=== PATIENT | female | born 1940 | race Caucasian/White ===

== ENCOUNTER 2022-03-22 14:08 | Observation (INO) ==
[2022-03-22] MEDS ORDERED: Iodixanol (CONTRAST) 320 MG/ML 100 ML SDV IV ONE (14:55)
[2022-03-22 16:07] LABS: ABS Lymphocytes 1.1 10^3/ul (1.0-4.8); ABS Monocytes 0.4 10^3/ul (0-0.8); ABS Neutrophils 9.4 10^3/ul (1.5-7.7); Hematocrit 38 % (35-47); Hemoglobin 12.6 g/dL (12.0-16.0); Lymphocyte % 9.9 %; Mean Corpuscular HGB Conc 33 g/dL (31-36); Mean Corpuscular Hemoglobin 28 pg (27-31); Mean Corpuscular Volume 86 fL (80-97); Mean Platelet Volume 7.7 fL (7.4-10.4); Platelet Count 250 10^3/uL (150-450); Red Blood Count 4.48 10^6 /uL (3.70-4.87); Red Cell Distribution Width 13 % (10-15); White Blood Count 10.9 10^3/uL (3.5-10.8)
[2022-03-22 16:14] LABS: Activated Partial Thrombo Time 36.9 seconds (26.0-38.0); INR 1.57 (0.88-1.18)
[2022-03-22 16:41] LABS: Albumin 4.1 g/dL (3.2-5.2); Albumin/Globulin Ratio 1.6 (1-3); Calcium 9.2 mg/dL (8.6-10.3); Globulin 2.5 g/dL (2-4); HDL Cholesterol 33.4 mg/dL; Potassium 3.7 mmol/L (3.5-5.0); Total Bilirubin 0.6 mg/dL (0.2-1.0); Total Protein 6.6 g/dL (6.4-8.9); eGFR CKD-EPI 86.6 (>60)
[2022-03-22 17:09] LABS: Urine Appearance Cloudy; Urine Bilirubin Negative (Negative); Urine Blood Negative (Negative); Urine Color Yellow; Urine Glucose Negative (Negative); Urine Ketones Trace (Negative); Urine Nitrite Negative (Negative); Urine Protein Negative (Negative); Urine Specific Gravity 1.021 (1.002-1.030); Urine Urobilinogen Negative (Negative)
[2022-03-22] MEDS ORDERED: Aspirin EC 81 mg TAB.EC (enteric coated) PO ONE (17:22)
[2022-03-22 19:05] LABS: Magnesium 1.5 mg/dL (1.9-2.7)
[2022-03-22 20:58] LABS: Osmolality Serum 276 mOsm/kg (275-295)
[2022-03-23 07:00] LABS: Urine Osmo 502 mOsm/kg (150-1150)
[2022-03-23] MEDS ORDERED: DULoxetine DR 60 mg CAP PO SCH (09:00)
[2022-03-23 09:42] LABS: Calcium 9.1 mg/dL (8.6-10.3); Potassium 4.4 mmol/L (3.5-5.0); eGFR CKD-EPI 80.7 (>60)
[2022-03-23 13:25] LABS: Magnesium 1.4 mg/dL (1.9-2.7)
[2022-03-23] MEDS ORDERED: Magnesium Sulf 4 GM/100 ML IV 4,000 MG/100 ML BAG IVPB ONE (13:53)
[2022-03-23 16:44] VITALS: BP 129/64
== END 2022-03-23 20:48 | disposition home or self-care (01) ==
LOC: EDHOLD 14:08 → ED 14:08 → SUATTDRO 17:20 → MEDTELE 20:10
PROVIDERS: ADMIT Hospitalist; ATTEND Internal Medicine